=== PATIENT | female | born 1990 | race Caucasian/White ===

== ENCOUNTER 2021-01-22 13:55 | Emergency (ER) | payer OTHER, MEDICAID ==
[~2021-01-22] VITALS: Ht 160 cm; Wt 61.2 kg
[2021-01-22 13:55] VITALS: BP 113/86
[~2021-01-22 13:55] MED LIST: FLEXERIL PO; NOHOMEMEDICATIONS
--- NOTE | 2021-01-24 15:08 | EKG ---
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: : 1990 Requested By: Cady Singh Order Number: [id number] MD: Gareth Moffett Measurements Intervals Anita Rate: 99 P: 52 GA: 168 QRS: 74 QRSD: 88 T: 42 QT: 367 QTc: 471 Interpretive Statements Sinus rhythm Low voltage, precordial leads Borderline prolonged QT interval No previous ECG available for comparison Electronically Signed On 01-24-2021 15:08:45 PROJECT ADMINISTRATIVE ASSISTANT by Gareth Moffett [email or web address] <ELECTRONICALLY SIGNED> By: Gareth Moffett MD, [facility] 01/24/21 1508 1357 1357 Gareth Moffett MD, [facility] /EPI
== END 2021-01-22 17:18 | disposition left against medical advice (07) ==
LOC: M.ERS 13:55
DX: R07.89 Other chest pain (principal); Z53.21 Procedure and treatment not carried out due to patient leaving prior to being seen by health care provider